=== PATIENT | female | born 1945 | race Caucasian/White ===

== ENCOUNTER → 2025-09-11 11:37 | Outpatient (CLI) | payer MEDICARE, OTHER, SELFPAY ==
--- NOTE | 2025-09-11 11:39 | DI.RAD.S_ITS ---
PROCEDURE: XR DEXA AXIAL SKELETON INDICATIONS: screening COMPARISON: None. FINDINGS: Lumbar Spine: Bone mineral density is 0.729 g/cm2, T score -2.9. Left Femoral Neck: Bone mineral density 0.498 g/cm2, T score -3.2. Left Hip: Bone mineral density 0.532 g/cm2, T score -3.4. Fracture Risk Calculation (when applicable): 10-year fracture risk of a major osteoporotic fracture 19 percent and of a hip fracture 8.4 percent. (T score greater or equal to -1.0 to: NORMAL) (T score from -1.1 to -2.4: OSTEOPENIA) (T score less than or equal to -2.5: OSTEOPOROSIS) IMPRESSION: Lumbar spine and left femoral neck indicate osteoporosis. Follow-up guidelines as follows: Osteoporosis: Consider a repeat DEXA and Vertebral Fracture Assessment (VFA) exam in 2 years or sooner if medically necessary, to reassess this patient's status. Osteopenia: Consider a repeat DEXA in 2-3 years to reassess this patient's status, or if there is a new clinical indication. Normal: Consider a repeat DEXA in 5 years or sooner, or if there is a new clinical indication. All treatment decisions require clinical judgment and consideration of individual patient factors, including patient preferences, comorbidities, previous drug use, risk factors not captured in the FRAX model (e.g., frailty, falls, vitamin D deficiency, increased bone turnover, interval significant decline in bone density ) and possible under- or over-estimation of fracture risk by FRAX. In addition, the NOF Guide recommends that FDA-approved medical therapies be considered in postmenopausal women and men age >= 50 years with a: * Hip or vertebral (clinical or morphometric) fracture * T-score of <=-2.5 at the spine or hip * Ten-year fracture probability by FRAX of >= 3% for hip fracture or >=20% for major osteoporotic fracture. Dictated by: Shannon MYRICK Interpreted: Chantale Kothari MD on 09/11/2025 at 12:37 Transcribed by: DO on 09/11/2025 at 12:38 Approved by: Chantale Kothari M.D. on 09/11/2025 at 17:40
[2025-09-11 12:35] LABS: Hematocrit 38.7 % (36-46); Hemoglobin 13.4 g/dL (12.0-16.0); Mean Corpuscular HGB Conc 34.7 % (30-36); Mean Corpuscular Hemoglobin 31.8 PG (26-34); Mean Corpuscular Volume 91.7 fL (80-100); Platelet Count 389 X10^3/uL (150-400)
[2025-09-11 12:55] LABS: Alanine Aminotransferase 15 IU/L (<35); Albumin 4.4 g/dL (3.5-5.0); Albumin Globulin Ratio 1.7 (1.0-2.8); Alkaline Phosphatase 90 U/L (38-126); Blood Urea Nitrogen 6 mg/dL (7-17); Calcium 9.2 mg/dL (8.4-10.2); Carbon Dioxide 24 mmol/L (22-32); Chloride 94 mmol/L (98-107); Cholesterol 258 mg/dL (140-199); Estimated Glomerular Filt Rate > 60 mL/min (>60); Globulin 2.6 g/dL (1.7-4.1); Glucose 103 mg/dL (70-99); HEMOLYSIS < 15 (0-50); Potassium 4.3 mmol/L (3.4-5.1); Sodium 126 mmol/L (137-145); Total Protein 7.0 g/dL (6.3-8.2); Triglycerides 74 mg/dL (35-150)
[2025-09-11 13:03] LABS: HDL Cholesterol 120 mg/dL (40-60)
[2025-09-11 13:26] LABS: TSH w/ Reflex to FT4 1.14 uIU/mL (0.47-4.68)
== END ==
LOC: RAD 11:39
PROVIDERS: PCP Internal Medicine; Referring Provider Internal Medicine; Visit Provider Internal Medicine
DX: M81.0 Age-related osteoporosis without current pathological fracture (principal); E78.2 Mixed hyperlipidemia; R53.83 Other fatigue; Z85.820 Personal history of malignant melanoma of skin
CPT/HCPCS: 36415; 77080; 80053; 80061; 84443; 85027

== ENCOUNTER → 2025-09-19 12:14 | Outpatient (CLI) | payer MEDICARE, OTHER, SELFPAY ==
[2025-09-19 13:13] LABS: Blood Urea Nitrogen 8 mg/dL (7-17); Calcium 9.0 mg/dL (8.4-10.2); Carbon Dioxide 23 mmol/L (22-32); Chloride 94 mmol/L (98-107); Estimated Glomerular Filt Rate > 60 mL/min (>60); Glucose 93 mg/dL (70-99); HEMOLYSIS < 15 (0-50); Potassium 4.5 mmol/L (3.4-5.1); Sodium 126 mmol/L (137-145)
[2025-09-19 14:55] LABS: Vitamin D 25 Hydroxy (D3) 35.7 ng/mL (30.0-100.0)
[2025-09-21 13:40] LABS: Calcium 9.0 mg/dL (8.7-10.3); Osmolality, Serum 264 mOsmol/kg (280-301); Parathyroid Hormone, Intact 35 pg/mL (15-65)
== END ==
PROVIDERS: PCP Internal Medicine; Referring Provider Internal Medicine; Visit Provider Internal Medicine
DX: E55.9 Vitamin D deficiency, unspecified (principal); E87.1 Hypo-osmolality and hyponatremia
CPT/HCPCS: 36415; 80048; 82306; 82310; 83930; 83970

== ENCOUNTER → 2025-10-03 13:01 | Outpatient (CLI) | payer MEDICARE, OTHER, SELFPAY ==
[2025-10-03 14:01] LABS: Blood Urea Nitrogen 11 mg/dL (7-17); Calcium 9.6 mg/dL (8.4-10.2); Carbon Dioxide 24 mmol/L (22-32); Chloride 99 mmol/L (98-107); Estimated Glomerular Filt Rate > 60 mL/min (>60); Glucose 90 mg/dL (70-99); HEMOLYSIS < 15 (0-50); Potassium 4.9 mmol/L (3.4-5.1); Sodium 132 mmol/L (137-145)
== END ==
PROVIDERS: PCP Internal Medicine; Referring Provider Internal Medicine; Visit Provider Internal Medicine
DX: E87.1 Hypo-osmolality and hyponatremia (principal)
CPT/HCPCS: 36415; 80048